=== PATIENT | female | born 1960 | race Caucasian/White ===

== ENCOUNTER 2016-09-25 12:02 | Emergency (ER) | payer BC, OTHER ==
--- NOTE | 2016-09-25 12:11 | ER Document Report ---
ED Medical Screen (RME) - General Chief Complaint: Abdominal Pain Stated Complaint: ABDOMINAL PAIN Time seen by provider: 12:09 Mode of Arrival: Ambulatory Information source: Patient Notes: 55-year-old female complaining of bulging in the right groin and pain that radiates into the right lower quadrant with coughing or moving for several years. No one has evaluated or looked at it or told her what it is. that's why she is coming today to get a correct diagnosis of what this is. She thinks it might be a hernia.
[2016-09-25 12:35] LABS: ABSOLUTE EOSINOPHILS # (AUTO) 0.1 10^3/uL (0.0-0.6); ABSOLUTE MONOCYTES (AUTO) 0.4 10^3/uL (0.1-1.4); ABSOLUTE NEUT (AUTO) 4.4 10^3/uL (1.7-8.2); BASOPHILS % (AUTO) 0.5 % (0-2); EOSINOPHILS % (AUTO) 1.3 % (0-6); HEMATOCRIT 44.9 % (36.0-47.0); HEMOGLOBIN 15.1 g/dL (12.0-15.5); HGB HCT DIFFERENCE 0.4; MEAN CORPUSCULAR HGB CONC 33.7 g/dL (32.0-36.0); MEAN CORPUSCULAR VOLUME 92 fl (80-97); MONOCYTES % (AUTO) 5.4 % (3-13); RED BLOOD COUNT 4.87 10^6/uL (3.72-5.28); RED CELL DISTRIBUTION WIDTH 13.1 % (11.5-14.0); SEGMENTED NEUTROPHILS % (AUTO) 63.8 % (42-78)
[2016-09-25 12:58] LABS: ALANINE AMINOTRANSFERASE 97 U/L (9-52); ALBUMIN 4.8 g/dL (3.5-5.0); ALKALINE PHOSPHATASE 70 U/L (38-126); ANION GAP 14 (5-19); ASPARTATE AMINO TRANSFERASE 48 U/L (14-36); BILIRUBIN,TOTAL 0.9 mg/dL (0.2-1.3); BLOOD UREA NITROGEN 16 mg/dL (7-20); CARBON DIOXIDE 26 mmol/L (22-30); CHLORIDE 105 mmol/L (98-107); CREATININE RESULT 1.06 mg/dL (0.52-1.25); GLUCOSE 116 mg/dL (75-110); LIPASE 87.3 U/L (23-300); POTASSIUM 3.8 mmol/L (3.6-5.0); TOTAL PROTEIN 7.6 g/dL (6.3-8.2)
--- NOTE | 2016-09-25 13:57 | ER Document Report ---
ED GI/ - General Mode of Arrival: Ambulatory Information source: Patient TRAVEL OUTSIDE OF THE [place] IN LAST 30 DAYS: No - HPI Patient complains to provider of: Abdominal pain - right, Other - "Hernia" Onset: Other - 7 years ago Location: Other - see above Associated symptoms: Other - see above <PAWAN MO - Last Filed: 09/25/16 13:51> <HERON GAMBLE - Last Filed: 09/25/16 17:03> - General Chief Complaint: Abdominal Pain Stated Complaint: ABDOMINAL PAIN Notes: 55 year old female with no history of medical problems presents to the ED complains of a hernia to the proximal medial right thigh and associated pain and discomfort to the right abdomen that has been present for the past 7 years. Patient explains that the pain and discomfort comes and goes, but is exacerbated when coughing, sneezing, or moving in a certain way. Patient's discomfort lasts between 30 seconds to 1 minute. Patient explains that the pain is better when standing up. Patient denies being on an prescription medication and explains that she only takes Zyrtec D for allergies. (PAWAN MO) - Related Data Allergies/Adverse Reactions: No Known Allergies Allergy (Unverified 09/25/16 12:13) Past Medical History - General Information source: Patient - Social History Smoking Status: Unknown if Ever Smoked Chew tobacco use (# tins/day): No Frequency of alcohol use: None Drug Abuse: None Family History: Reviewed & Not Pertinent Patient has suicidal ideation: No Patient has homicidal ideation: No Surgical Hx: Negative - Immunizations Hx Diphtheria, Pertussis, Tetanus Vaccination: No <PAWAN MO - Last Filed: 09/25/16 13:51> Review of Systems - Review of Systems Constitutional: No symptoms reported EENT: No symptoms reported Cardiovascular: No symptoms reported Respiratory: No symptoms reported Gastrointestinal: See HPI, Abdominal pain - right side, Other - "hernia" to the proximal medial right thigh Genitourinary: No symptoms reported Female Genitourinary: No symptoms reported Musculoskeletal: No symptoms reported Skin: No symptoms reported Hematologic/Lymphatic: No symptoms reported Neurological/Psychological: No symptoms reported -: Yes All other systems reviewed and negative <PAWAN MO - Last Filed: 09/25/16 13:51> Physical Exam - General General appearance: Alert In distress: None - HEENT Head: Normocephalic, Atraumatic Eyes: Normal Extraocular movements intact: Yes Pupils: PERRL - Respiratory Respiratory status: No respiratory distress Breath sounds: Normal - Cardiovascular Rhythm: Regular Heart sounds: Normal auscultation - Abdominal Inspection: Obese. No: Normal Distension: No distension Tenderness: Nontender - Back Back: Normal - Extremities General upper extremity: Normal inspection, Normal ROM General lower extremity: Normal ROM. No: Normal inspection - see thigh exam below Thigh: Other - 20 cm mass to the proximal medial right thigh that is lobulated and firm to touch.. No: Normal - Neurological Neuro grossly intact: Yes - Psychological Associated symptoms: Normal affect, Normal mood - Skin Skin Temperature: Warm Skin Moisture: Dry Skin Color: Normal <PAWAN MO - Last Filed: 09/25/16 13:51> <HERON GAMBLE - Last Filed: 09/25/16 17:03> - Vital signs Vitals: Temp Pulse Resp BP Pulse Ox 97.9 F 103 H 16 159/82 H 95 09/25/16 12:09 09/25/16 12:09 09/25/16 12:09 09/25/16 12:09 09/25/16 12:09 (PAWAN MO) (HERON GAMBLE) Course - Laboratory Result Diagrams: 09/25/16 12:24 09/25/16 12:24 <PAWAN MO - Last Filed: 09/25/16 13:51> - Laboratory Result Diagrams: 09/25/16 12:24 09/25/16 12:24 - Diagnostic Test Radiology reviewed: Reports reviewed <HERON GAMBLE - Last Filed: 09/25/16 17:03> - Re-evaluation Re-evalutation: 09/25/16 16:58 The patient was evaluated by Dr. Martin. He recommend she follow-up with [facility] to evaluate the thigh mass. He feels the intermittent right-sided abdominal pain could possibly be a Spigelian hernia, but there is no urgency given her brief and infrequent symptoms. (HERON GAMBLE) - Vital Signs Vital signs: Temp Pulse Resp BP Pulse Ox 97.9 F 103 H 16 159/82 H 95 09/25/16 12:09 09/25/16 12:09 09/25/16 12:09 09/25/16 12:09 09/25/16 12:09 (PAWAN MO) (HERON GAMBLE) - Laboratory Laboratory results interpreted by me: 09/25/16 09/25/16 12:24 16:20 Est GFR (Non-Af Amer) 54 L Glucose 116 H AST 48 H ALT 97 H Urine Protein 30 H (PAWAN MO) (HERON GAMBLE) Discharge <PAWAN MO - Last Filed: 09/25/16 13:51> <HERON GAMBLE - Last Filed: 09/25/16 17:03> - Discharge Clinical Impression: Mass of right thigh Abdominal pain Qualifiers: Abdominal location: right lower quadrant Qualified Code(s): R10.31 - Right lower quadrant pain Condition: Stable Disposition: HOME, SELF-CARE Additional Instructions: The MRI of your thigh mass is suspicious for a liposarcoma. The evaluation of her abdominal pain suggests there might possibly have a Spigelian hernia. Follow-up with [facility] to evaluate your abdominal pain and thigh mass. Call Tuesday for an appointment this week. RETURN TO THE EMERGENCY ROOM IF ANY NEW OR WORSENING SYMPTOMS. Referrals: [facility] [Provider Group] - Follow up in 3-5 days (Call Tuesday for an appointment.) Scribe Documentation - Scribe Written by Sina:: Sina Lieberman, 09/25/2016 14:02 acting as scribe for :: Alina <PAWAN MO - Last Filed: 09/25/16 13:51>
[2016-09-25 16:35] LABS: APPEARANCE,URINE SLIGHTLY-CLOUDY; BILIRUBIN,URINE NEGATIVE (NEGATIVE); GLUCOSE, URINE NEGATIVE (NEGATIVE); KETONES,URINE NEGATIVE (NEGATIVE); LEUKOCYTE ESTERASE,URINE NEGATIVE (NEGATIVE); NITRITE,URINE NEGATIVE (NEGATIVE); PROTEIN,URINE 30 mg/dL (NEGATIVE); URINE SPECIFIC GRAVITY 1.029; UROBILINOGEN,URINE NEGATIVE mg/dL (<2.0)
[2016-09-25 17:30] VITALS: BP 166/80
== END 2016-09-25 17:25 | disposition home or self-care (01) ==
LOC: ER 12:02
DX: R10.31 Right lower quadrant pain (principal); R22.41 Localized swelling, mass and lump, right lower limb
CPT/HCPCS: 99284; 36415; 83690; 84703; 85025; 80053; 81001; 73720; A9576

== ENCOUNTER → 2016-12-22 | Outpatient (CLI) | payer BC, OTHER | LOC: RAD 16:05 | PROVIDERS: ATTEND Radiology Radiation Oncology | DX: C49.21 Malignant neoplasm of connective and soft tissue of right lower limb, including hip (principal) | CPT/HCPCS: 82565; 74183; A9576 ==

== ENCOUNTER → 2017-04-14 | Outpatient (CLI) | payer BC, OTHER ==
--- NOTE | 2017-04-18 13:09 | WOMENS IMAGING REPORT ---
EXAM DESCRIPTION: BILAT SCREENING MAMMO W/CAD COMPLETED DATE/TIME: 04/14/2017 3:03 pm REASON FOR STUDY: SCREENING MAMMO Z12.31 ENCNTR SCREEN MAMMOGRAM FOR MALIGNANT NEOPLASM OF DAVID COMPARISON: No previous TECHNIQUE: Standard craniocaudal and mediolateral oblique views of each breast recorded using digita l acquisition. LIMITATIONS: None. FINDINGS: RIGHT BREAST MASSES: There are two small less than 1 cm mammographic nodules in the right upper outer quadrant whi ch require further evaluation with cone compression views, right breast 90 mediolateral view, and ul trasound. CALCIFICATIONS: No new or suspicious calcifications. ARCHITECTURAL DISTORTION: None. DEVELOPING DENSITY: None. ASYMMETRY: None noted. OTHER: No other significant findings. LEFT BREAST MASSES: No suspicious masses. CALCIFICATIONS: No new or suspicious calcifications. ARCHITECTURAL DISTORTION: None. DEVELOPING DENSITY: None. ASYMMETRY: None noted. OTHER: No other significant findings. Read with the assistance of CAD. .[facility] - R2 Cenova Version 1.3 .[facility] - R2 Cenova Version 1.3 .[facility] - R2 Cenova Version 2.4 .[facility] - R2 Cenova Version 2.4 .[facility] - R2 Wool Cleaner Version 9.2 IMPRESSION: Small mammographic nodules right breast upper outer quadrant for which additional diagno stic mammography and ultrasound is recommended No mammographic evidence for malignancy left breast. BREAST DENSITY: b. There are scattered areas of fibroglandular density. BIRAD: 0 Incomplete: Needs Additional Imaging Evaluation and/or prior Mammograms for Comparison. RECOMMENDATION: RECOMMENDED FOLLOW-UP: Right breast diagnostic mammograms and breast ultrasound The patient will be contacted for additional imaging. COMMENT: The patient has been notified of the results by letter per [place] requirements. Additional no tification policies are in place for contacting patient with suspicious or incomplete findings. Quality ID #225: The [employer] recommends an annual screening mammogram for women aged 40 years or over. This facility utilizes a reminder system to ensure that all patients receive reminder letters, and/or direct phone calls for appointments. This includes reminders for routine scr eening mammograms, diagnostic mammograms, or other Breast Imaging Interventions when appropriate. Th is patient will be placed in the appropriate reminder system. The [employer] (ACR) has developed recommendations for screening MRI of the breast s in certain patient populations, to be used in conjunction with mammography. Breast MRI surveillanc e may be appropriate for women with more than 20% lifetime risk of developing breast cancer as deter mined by genetic testing, significant family history of the disease, or history of mantle radiation f or Hodgkins Disease. ACR Practice Guidelines 2008. TECHNICAL DOCUMENTATION: FINDING NUMBER: (1) ASSESSMENT: (1) JOB ID: [id number] [employer]- All Rights Reserved
== END ==
LOC: WI 14:40
PROVIDERS: ATTEND Nurse Practitioner
DX: Z12.31 Encounter for screening mammogram for malignant neoplasm of breast (principal); N63 Unspecified lump in breast
CPT/HCPCS: 77067; G0202

== ENCOUNTER → 2017-05-10 | Outpatient (CLI) | payer BC, OTHER ==
--- NOTE | 2017-05-10 18:16 | WOMENS IMAGING REPORT ---
EXAM DESCRIPTION: BILAT DIAGNOSTIC MAMMO W/CAD; U/S BREAST UNILAT LIMITED COMPLETED DATE/TIME: 05/10/2017 11:21 am; 05/10/2017 11:47 am REASON FOR STUDY: NODULAR DENSITY; RT BREAST NODULAR DENSITIES N63 UNSPECIFIED LUMP IN BREAST COMPARISON: Mammograms 04/14/2017 TECHNIQUE: Cone compression magnification craniocaudal and mediolateral oblique views of the right b reast recorded using digital acquisition. Additional right breast 90 mediolateral view. Right breast ultrasound. LIMITATIONS: None. FINDINGS: RIGHT BREAST MASSES: 4 mm mammographic nodule right breast, 5 cm from the nipple. 7 to 8 mm mammographic nodule r ight upper outer quadrant 10 cm from the nipple. CALCIFICATIONS: No new or suspicious calcifications. ARCHITECTURAL DISTORTION: None. DEVELOPING DENSITY: None. ASYMMETRY: None noted. OTHER: No other significant findings. Right breast ultrasound: Ultrasound of the right breast was performed. About 5 cm from the nipple right breast 9 to 10 o'cloc k position, a 4 mm breast parenchymal cyst is present. This correlates with the mammographic finding s and is benign. About 10 cm from the nipple in the upper outer quadrant, a 7 to 8 mm intramammary lymph node is prese nt, with preserved central hilar fat and normal cortical thickness. This correlates the mammographic findings today, and is benign. IMPRESSION: No mammographic or sonographic evidence for malignancy right breast BREAST DENSITY: b. There are scattered areas of fibroglandular density. BIRAD: 2 Benign findings. RECOMMENDATION: RECOMMENDED FOLLOW UP: Please continue yearly bilateral screening in April 2018. Veronica fuentes consider bilateral screening tomosynthesis. SPECIFIC INTERVENTION/IMAGING/CONSULTATION RECOMMENDED:No additional intervention/ imaging/consultati on needed at this time. COMMUNICATION:Patient notified by letter COMMENT: The patient has been notified of the results by letter per MQSA requirements. Additional no tification policies are in place for contacting patient with suspicious or incomplete findings. Quality ID #[id number]: The [employer] recommends an annual screening mammogram for women aged 40 years or over. This facility utilizes a reminder system to ensure that all patients receive reminder letters, and/or direct phone calls for appointments. This includes reminders for routine scr eening mammograms, diagnostic mammograms, or other Breast Imaging Interventions when appropriate. Th is patient will be placed in the appropriate reminder system. The [employer] (ACR) has developed recommendations for screening MRI of the breast s in certain patient populations, to be used in conjunction with mammography. Breast MRI surveillanc e may be appropriate for women with more than 20% lifetime risk of developing breast cancer as deter mined by genetic testing, significant family history of the disease, or history of mantle radiation f or Hodgkins Disease. ACR Practice Guidelines 2008. TECHNICAL DOCUMENTATION: FINDING NUMBER: (1) ASSESSMENT: (1) JOB ID: [id number] [employer]- All Rights Reserved
== END ==
LOC: WI 10:45
PROVIDERS: ATTEND Nurse Practitioner
DX: N63 Unspecified lump in breast (principal)
CPT/HCPCS: 76642; G0204; 77066

== ENCOUNTER → 2017-05-19 | Outpatient (CLI) | payer BC, OTHER ==
--- NOTE | 2017-05-23 15:34 | RADIOLOGY REPORT (SQ) ---
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 TECHNIQUE: Multiplanar fat and fluid sensitive sequences precontrast including T1, T2 fat saturated or STIR. Post contrast T1 fat saturated sequences after IV gadolinium administration. CONTRAST TYPE AND DOSE: 20 mL Multihance. RENAL FUNCTION: GFR > 60. LIMITATIONS: None. FINDINGS: MASS SIGNAL CHARACTERISTICS: LOCATION: Proximal medial thigh deep subcutaneous fat at the site of lab sarcoma resection. SIGNAL CHARACTERISTICS AND ENHANCEMENT PATTERN: Pre contrast low T1. Hyperintense T2. No appreciabl e enhancement or solid component. MEASUREMENTS: Dumbbell-shaped fluid collection. Inferior portion of the lesion measures close to 3.1 cm transverse dimension with a small connection to the upper portion, which measures up to 3.5 cm. MARROW SIGNAL IN ADJACENT BONES: Normal. OTHER SIGNIFICANT BONE, JOINT OR SOFT TISSUE FINDINGS: Mild regional subcutaneous edema. IMPRESSION: 1. Status post excision of the leiomyosarcoma. At the operative site, a small seroma in the deep subcutaneous fat is present. No persistent abnormal enhancing tissue or solid mass. TECHNICAL DOCUMENTATION: JOB ID: [id number] [employer]- All Rights Reserved
== END ==
LOC: RAD 08:02
PROVIDERS: ATTEND Radiology Radiation Oncology
DX: C49.21 Malignant neoplasm of connective and soft tissue of right lower limb, including hip (principal)
CPT/HCPCS: 82565; 73720; A9576

== ENCOUNTER → 2018-06-05 | Outpatient (CLI) | payer BC, OTHER ==
--- NOTE | 2018-06-05 11:51 | RADIOLOGY REPORT (SQ) ---
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 Post contrast T1 fat saturated sequences after IV gadolinium administration. CONTRAST TYPE AND DOSE: 20 mL Dotarem. RENAL FUNCTION: GFR > 60. LIMITATIONS: None. FINDINGS: MASS SIGNAL CHARACTERISTICS: LOCATION: Right upper medial thigh SIGNAL CHARACTERISTICS AND ENHANCEMENT PATTERN: There is an oval area of high signal on T2 with low s ignal on T1 and no enhancement. No solid enhancing mass lesions. MEASUREMENTS: 2 cm. Smaller than previous. MARROW SIGNAL IN ADJACENT BONES: Normal OTHER SIGNIFICANT BONE, JOINT OR SOFT TISSUE FINDINGS: Minimal adjacent edema. IMPRESSION: Persistent small seroma at the surgical site decreased in size. No evidence for recurre nt tumor. TECHNICAL DOCUMENTATION: JOB ID: [id number]- All Rights Reserved Reading location - IP/workstation name: [email or web address]
== END ==
LOC: RAD 07:09
PROVIDERS: ATTEND Radiology Radiation Oncology
DX: C49.21 Malignant neoplasm of connective and soft tissue of right lower limb, including hip (principal)
CPT/HCPCS: 82565; 73720; A9576

== ENCOUNTER → 2019-06-07 | Outpatient (CLI) | payer BC, OTHER ==
--- NOTE | 2019-06-07 10:40 | RADIOLOGY REPORT (SQ) ---
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 Post contrast T1 fat saturated sequences after IV gadolinium administration. CONTRAST TYPE AND DOSE: 20 mL Dotarem. RENAL FUNCTION: GFR > 60. LIMITATIONS: None. FINDINGS: On axial image 26-30 in the medial right thigh subcutaneous fat, there is minimal fat necr osis and peripheral rim calcification. This is in the area of prior seroma which has resolved. More proximally in the right thigh, at the level of tumor resection there is no worrisome recurrent n odule. No abnormal masses or enhancement along the right thigh and neurovascular bundle or inguinal region. Right thigh muscles are unremarkable. Right femur demonstrates normal marrow signal. Very limited view of the right hemipelvis in the field of view is unremarkable. IMPRESSION: No MR evidence of recurrent sarcoma in the medial right upper thigh. TECHNICAL DOCUMENTATION: JOB ID: [id number] [employer]- All Rights Reserved Reading location - IP/workstation name: [email or web address]
== END ==
LOC: RAD 07:26
PROVIDERS: ATTEND Internal Medicine
DX: C49.21 Malignant neoplasm of connective and soft tissue of right lower limb, including hip (principal)
CPT/HCPCS: 73720; A9576

== ENCOUNTER → 2019-12-31 | Outpatient (CLI) | payer BC, OTHER ==
--- NOTE | 2019-12-31 10:20 | RADIOLOGY REPORT (SQ) ---
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 TECHNIQUE: Multiplanar imaging of the right thigh to include T1-weighted, postcontrast T1-weighted, and T2-weighted images. CONTRAST TYPE AND DOSE: 20 mL Dotarem. RENAL FUNCTION: Not indicated. ACR Type II contrast agent associated with few, if any, unconfounded cases of NSF LIMITATIONS: None. FINDINGS: BONE MARROW: Normal appearance. Visualized femur and right hemipelvis marrow signal unrem arkable without evidence of edema or mass or occult fracture. SOFT TISSUES: Scarring in the medial proximal thigh tissues, largely subcutaneous. In the deep subcu taneous tissues along the distal 3rd of the thigh, there is a small recurrent enhancing mass suggeste d. TBIs lies superficial to and directly abuts the sartorius muscle. In the axial plane this measur es close to 1.8 cm transverse dimension (axial postcontrast series 3, image 36/48 and adjacent slices ). Craniocadally, this lesion measures close to 2.3 cm (post-contrast sagittal series 15, image 27/3 8). OTHER: No other significant finding. IMPRESSION: 1. Small enhancing mass in the deep subcutaneous right thigh tissues as above. Suspicious for recurr ent sarcoma. Call report tasked to the [facility] CORE team at the time of interpretation. TECHNICAL DOCUMENTATION: JOB ID: [id number] [employer]- All Rights Reserved Reading location - IP/workstation name: [email or web address]
== END ==
LOC: RAD 08:19
PROVIDERS: ATTEND Internal Medicine
DX: C49.21 Malignant neoplasm of connective and soft tissue of right lower limb, including hip (principal)
CPT/HCPCS: 82565; 73720; A9576